=== PATIENT | male | born 1980 | race Caucasian/White ===

== ENCOUNTER 2017-10-13 11:33 | Emergency (ER) | payer OTHER, BC ==
[~2017-10-13] VITALS: Ht 170.2 cm; Wt 75.0 kg
[2017-10-13 11:43] VITALS: TEMP 37; Ht 170.2 cm; Wt 75.0 kg
[2017-10-13] MEDS ORDERED: ONDANSETRON INJ 2 MG/ML 2 ML VIAL IV STA (12:10)
[2017-10-13] MEDS ORDERED: MoRPHine SULFATE 10 MG/ML CARP/VIAL IV STA (12:10)
[2017-10-13] MEDS ORDERED: MoRPHine SULFATE 4 MG/ML 1 ML CARP\\VIAL ONE (12:44)
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
[2017-10-13] MEDS ORDERED: LIDO/EPINEPHRINE/SOD BICARB 20 ML VIAL INFIL ONE (13:07)
[2017-10-13] MEDS ORDERED: LIDOCAINE/EPINEPHRINE 1% 20 ML VIAL INFIL ONE (13:15)
[2017-10-13] MEDS ORDERED: HYDROmorphone INJ 1 MG/ML SYR IV STA (14:26)
--- NOTE | 2017-10-13 14:42 | DIAGNOSTIC IMAGING REPORT ---
L PELVIS/UNILATERAL HIP 1 VIEW CLINICAL HISTORY: Pelvic/L hip pain COMPARISON STUDY: None. FINDINGS: No fracture or dislocation within the pelvis or hips. The sacrum appears intact. Soft tissues are unremarkable. Cartilage spaces are maintained for age. IMPRESSION: No fracture or dislocation within the pelvis or hips. Electronically signed by: Chucky Hernandez M.D. 10/13/2017 2:40 PM Dictated Date/Time: 10/13/2017 2:38 PM
--- NOTE | 2017-10-13 14:43 | DIAGNOSTIC IMAGING REPORT ---
RIGHT KNEE 3 VIEWS HISTORY: R knee pain COMPARISON: None. FINDINGS: There is no fracture or dislocation. Soft tissues are unremarkable. No radiopaque foreign bodies. No knee effusion. IMPRESSION: No fractures. Electronically signed by: Chucky Hernandez M.D. 10/13/2017 2:42 PM Dictated Date/Time: 10/13/2017 2:40 PM
--- NOTE | 2017-10-13 14:46 | DIAGNOSTIC IMAGING REPORT ---
LUMBAR SPINE 5 VIEWS HISTORY: Low back pain. Injury. COMPARISON: None. FINDINGS: There is no fracture. No subluxation. Disc spaces are preserved. IMPRESSION: No fracture or subluxation within the lumbar spine. Electronically signed by: Chucky Hernandez M.D. 10/13/2017 2:45 PM Dictated Date/Time: 10/13/2017 2:44 PM
[2017-10-13] MEDS ORDERED: HYDROmorphone INJ 0.5 MG/0.5 ML SYR IV STA (15:30)
[2017-10-13] MEDS ORDERED: OXYC1TAB3 PO (15:32)
[2017-10-13] MEDS ORDERED: CLIN150C PO (15:32)
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
[2017-10-13 15:52] VITALS: BP 138/86; PULSE 113; O2SAT 96
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
== END 2017-10-13 16:12 | disposition home or self-care (01) ==
LOC: EDBD 11:36 → C.EDB 11:36
DX: S02.42XA Fracture of alveolus of maxilla, initial encounter for closed fracture (principal); S01.511A Laceration without foreign body of lip, initial encounter; S81.819A Laceration without foreign body, unspecified lower leg, initial encounter; V98.3XXA Accident to, on or involving ski lift, initial encounter; M54.5 Low back pain; M25.552 Pain in left hip; M25.562 Pain in left knee; M54.2 Cervicalgia; R40.2412 Glasgow coma scale score 13-15, at arrival to emergency department; R00.0 Tachycardia, unspecified; R03.0 Elevated blood-pressure reading, without diagnosis of hypertension

== ENCOUNTER → 2017-12-03 | Outpatient (CLI) | payer OTHER ==
[~2017-12-03] MED LIST: OXYC1TAB3 PO
--- NOTE | 2017-12-03 17:20 | DIAGNOSTIC IMAGING REPORT ---
MRI THE RIGHT KNEE NO CONTRAST CLINICAL HISTORY: Right knee pain status post trauma COMPARISON STUDY: Outside radiograph dated 11/02/2017 FINDINGS: Imaging was performed in sagittal, coronal, and axial planes. There are no areas of marrow edema to indicate occult fracture or bone bruise. The patellar retinacular structures appear intact. The medial and lateral collateral ligaments appear intact. The quadriceps and patellar tendons appear intact. Anterior posterior cruciate ligaments appear intact. No meniscal tears are visualized. IMPRESSION: No evidence of internal derangement. Electronically signed by: Jethro Harrell M.D. 12/03/2017 5:19 PM Dictated Date/Time: 12/03/2017 5:16 PM
== END | disposition home or self-care (01) ==
LOC: C.MRIBC 15:49
PROVIDERS: ATTEND Orthopaedic Surgery Orthopaedic Surgery of the Spine
DX: M25.561 Pain in right knee (principal)